=== PATIENT | female | born 1935 | race Caucasian/White ===

== ENCOUNTER → 2019-03-01 | Outpatient (CLI) | payer MEDICARE, BC ==
--- NOTE | 2019-03-01 13:49 | XR ---
EXAMINATION TYPE: XR Hip Limited RT DATE OF EXAM: 03/01/2019 CLINICAL HISTORY: Chronic right hip pain TECHNIQUE: AP and frogleg views of the right hip are obtained. COMPARISON: None. FINDINGS: There is no acute fracture/dislocation evident in the right hip. The joint space in the r ight hip appears aligned however there is cephalad joint space narrowing, subchondral cysts, and acet abular roof sclerosis. No cam deformity. Diffuse osseous demineralization is seen. The overlying sof t tissue appears unremarkable. IMPRESSION: 1. No acute fracture or dislocation in the right hip. 2. Moderate right femoral acetabular arthropathy. 3. Diffuse osseous demineralization.
== END ==
LOC: RADXRMAIN 12:41
PROVIDERS: ATTEND Family Medicine
DX: M12.851 Other specific arthropathies, not elsewhere classified, right hip (principal); M81.8 Other osteoporosis without current pathological fracture
CPT/HCPCS: 73501

== ENCOUNTER → 2019-09-13 | Outpatient (CLI) | payer MEDICARE, BC ==
[2019-09-13 09:23] LABS: Basophils % (A) 1 %; Eosinophils # (A) 0.1 k/uL (0-0.7); Eosinophils % (A) 2 %; HCT 42.5 % (34.0-46.0); HGB 13.9 gm/dL (11.4-16.0); Lymphocytes # (A) 3.2 k/uL (1.0-4.8); Lymphocytes % (A) 48 %; MCH 31.9 pg (25.0-35.0); MCHC 32.8 g/dL (31.0-37.0); MCV 97.2 fL (80.0-100.0); Mean Platelet Volume 7.8; Monocytes # (A) 0.4 k/uL (0-1.0); Monocytes % (A) 6 %; Neutrophils # (A) 2.8 k/uL (1.3-7.7); Neutrophils % (A) 42 %; Platelet Count 264 k/uL (150-450); RBC 4.37 m/uL (3.80-5.40); RDW 12.4 % (11.5-15.5); WBC 6.7 k/uL (3.8-10.6)
[2019-09-13 16:48] LABS: African American GFR (CKD) 91.6 (60.0-200.0); Albumin 4.3 g/dL (3.80-4.90); Albumin/Globulin Ratio 1.95 (1.60-3.17); Anion Gap 4.5 mmol/L (4.00-12.00); BUN/Creat Ratio 25.71 Ratio (12.00-20.00); Bilirubin, Conjugated 0.2 mg/dL (0.20-0.40); Bilirubin,Unconjugated 0.4 mg/dL; Calcium 9.1 mg/dL (8.7-10.3); Carbon Dioxide 29.5 mmol/L (21.6-31.8); Chol/HDL Ratio 4.12; Globulin 2.2 g/dL (1.6-3.3); LDL Cholesterol,Calculated 97.4 mg/dL (0.0-131.0); Potassium 4.5 mmol/L (3.5-5.5); Total Bilirubin 0.6 mg/dL (0.3-1.2); Total Protein 6.5 g/dL (6.2-8.2); VLDL Calculation 36.6 mg/dL (5.00-40.00)
== END | disposition home or self-care (01) ==
LOC: LABWHC1 08:47
PROVIDERS: ATTEND Family Medicine
DX: Z13.220 Encounter for screening for lipoid disorders (principal); E78.5 Hyperlipidemia, unspecified; I10 Essential (primary) hypertension; K29.70 Gastritis, unspecified, without bleeding; E55.9 Vitamin D deficiency, unspecified
CPT/HCPCS: 36415; 80053; 80061; 82248; 82306; 83735; 84443; 85025

== ENCOUNTER → 2019-10-21 | Outpatient (CLI) | payer MEDICARE, BC ==
--- NOTE | 2019-10-21 14:51 | XR ---
EXAMINATION TYPE: XR cervical spine 4 views comp, XR finger 3 views RT first digit, XR wrist complete 4 views RT DATE OF EXAM: 10/21/2019 COMPARISON: None HISTORY: 84-year-old female with neck pain, first MCP joint pain, wrist pain. FINDINGS: CERVICAL SPINE: Advanced hypertrophic facet and uncovertebral joint arthropathy throughout. On the left, changes resu lt in moderate bony neural foraminal narrowing mid and lower cervical spine. Moderate to severe bony neural foraminal narrowing on the right at C4-C5 and mild at additional levels. Degenerative grade 1 anterolisthesis at C4-C5 and C5-C6. No predental space widening or soft tissue swelling. RIGHT THUMB: Moderate degenerative change first MCP joint with joint space narrowing and marginal spurring. More s evere degenerative change first CMC joint with [id number] articulation, subchondral sclerosis, and marginal spurring. Moderate degenerative change triscaphe joint. No acute fracture, subluxation, or d islocation. RIGHT WRIST: Patchy osteopenia. Radiocarpal and distal radioulnar joint as well as the midcarpal compartment appea r intact. Positive ulnar variance is noted. No acute fracture, subluxation, dislocation. IMPRESSION: 1. Cervical spine: Moderate to advanced hypertrophic facet and uncovertebral joint arthropathy throug hout. Degenerative grade 1 anterolisthesis at C4-C5 and C5-C6. Variable moderate bony neuroforaminal narrowing throughout the left side and moderate to severe on the right at C4-C5. 2. Right thumb: Severe degenerative change at the basal joint of the thumb and moderate OA at the fir st MCP and triscaphe joints. 3. Right wrist: Patchy osteopenia. Positive ulnar variance incidentally noted which can lead to injur ies of the TFC. No acute osseous abnormality seen.
== END | disposition home or self-care (01) ==
LOC: RADXRMAIN 14:15
PROVIDERS: ATTEND Family Medicine
DX: M48.02 Spinal stenosis, cervical region (principal); M43.12 Spondylolisthesis, cervical region; M46.92 Unspecified inflammatory spondylopathy, cervical region; M18.11 Unilateral primary osteoarthritis of first carpometacarpal joint, right hand; M85.80 Other specified disorders of bone density and structure, unspecified site
CPT/HCPCS: 72050

== ENCOUNTER 2020-06-09 09:20 | Emergency (ER) | payer MEDICARE, BC ==
[2020-06-09 09:31] VITALS: BP 164/73; PULSE 87; RESP 18; TEMP 98
--- NOTE | 2020-06-09 10:58 | ED ---
General Adult HPI - General Chief complaint: Neuro Symptoms/Deficit Stated complaint: Possible stroke Time Seen by Provider: 06/09/20 10:43 Source: patient, family, RN notes reviewed, old records reviewed Mode of arrival: wheelchair Limitations: no limitations - History of Present Illness Initial comments: 84-year-old female patient the ED. Patient reports that she woke up today with sinus pressure. Patient reports that for years she has had some waxing and waning paresthesias down her arms. This is unchanged. Patient reports that she transiently had a little bit of pressure behind her eye. This concerned her for a brief period of time she went on the hospital for evaluation. At this time patient is reporting maxillary sinus pressure no paresthesias no weakness no headache. Patient never any facial droop or any unilateral weakness. Denies any falls or trauma. Systemic: Pt denies fatigue, fever/chills, rash. Pt denies weakness, night sw eats, weight loss. Neuro: Pt denies headache, visual disturbances, syncope or pre-syncope. HEENT: Pt denies ocular discharge or irritation, otalgia, rhinorrhea, pharyngitis or notable lymphadenopathy. Cardiopulmonary: Pt denies chest pain, SOB, heart palpitations, dyspnea on exertion. Abdominal/GI: Pt denies abdominal pain, n/v/d. : Pt denies dysuria, burning w/ urination, frequency/urgency. Denies new onset urinary or bowel incontinence. MSK: Pt denies myalgia, loss of strength or function in extremities. Neuro: Pt denies new onset weakness, paresthesias. - Related Data Home Medications Medication Instructions Recorded Confirmed Ergocalciferol [Vitamin D2 50,000 unit PO Q7D 05/08/15 03/05/16 (DRISDOL)] amLODIPine BESYLATE [Norvasc] 2.5 mg PO DAILY 05/08/15 03/05/16 diazePAM [Valium] 5 mg PO HS PRN 05/08/15 03/05/16 Previous Rx's Medication Instructions Recorded Aspirin 325 mg PO DAILY #30 tab 05/12/15 Atorvastatin [Lipitor] 80 mg PO HS #60 tab 05/12/15 Clopidogrel [Plavix] 75 mg PO DAILY #90 tab 05/12/15 Metoprolol Tartrate [Lopressor] 25 mg PO DAILY #60 tab 05/12/15 Nitroglycerin Sl Tabs [Nitrostat] 0.4 mg SUBLINGUAL Q5M PRN #25 tab 05/12/15 Valsartan [Diovan] 160 mg PO DAILY #60 tab 05/12/15 Erythromycin Ophth Oint [Romycin 1 applic LEFT EYE QID 10 Days gm 03/05/16 Ophth Oint] Allergies Allergy/AdvReac Type Severity Reaction Status Date / Time Cephalosporins Allergy Unknown Verified 06/09/20 09:31 levofloxacin [From Levaquin] Allergy Dyspnea Verified 06/09/20 09:31 ofloxacin [From Floxin] Allergy Unknown Verified 06/09/20 09:31 oxaprozin [From Daypro] Allergy Unknown Verified 06/09/20 09:31 codeine AdvReac dizzy Verified 06/09/20 09:31 Review of Systems ROS Statement: Those systems with pertinent positive or pertinent negative responses have been documented in the HPI. ROS Other: All systems not noted in ROS Statement are negative. Past Medical History Past Medical History: Hypertension, Osteoarthritis (OA) Additional Past Medical History / Comment(s): 05/11/15 Pt admitted to floor s/p stent to LAD- R radial approach. 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 Other SX: R leg veinstripping, cyst removed from ovary, bladder suspension, breast implants Past Anesthesia/Blood Transfusion Reactions: No Reported Reaction Additional Past Anesthesia/Blood Transfusion Reaction / Comment(s): Pt has never recieved blood. Date of Last Stent Placement:: 05/11/15 Past Psychological History: Anxiety Past Alcohol Use History: Rare Past Drug Use History: None Reported - Past Family History Mother Family Medical History: Cancer Additional Family Medical History / Comment(s): Mother at age 847yrs of throat cancer mets to bowel Son(s) Family Medical History: Cancer Father Family Medical History: AFIB, CVA/TIA Additional Family Medical History / Comment(s): Father had heart problems and of a CVA at age 88 yrs. General Exam - General Exam Comments Initial Comments: Constitutional: NAD, AOX3, Pt has pleasant affect. HEENT: NC/AT, trachea midline, neck supple, no lymphadenopathy. External ears appear normal, without discharge. Mucous membranes moist. Eyes PERRLA, EOM intact. There is no scleral icterus. No pallor noted. Cardiopulmonary: RRR, no murmurs, rubs or gallops, no JVD noted. Lungs CTAB in anterior and posterior louis. No peripheral edema. Abdominal exam: Abdomen soft and non-distended. Abdomen non-tender to palpation in all 4 quadrants. Neuro: CN II-XII intact. No nuchal rigidity. No raccon eyes, no soliz sign. NIH 0. MSK: Sensation intact in upper and lower extremities. Full active ROM in upper and lower extremities, 5/5 stregnth. Ambulatory without difficulty. Limitations: no limitations Course Vital Signs 06/09/20 09:26 Temperature 98.0 F Pulse Rate 87 Respiratory 18 Rate Blood Pressure 164/73 O2 Sat by Pulse 99 Oximetry Medical Decision Making - Medical Decision Making 84-year-old female patient to ED. Patient does report that she has had some sinus pressure which began today. Upon evaluation I recommended advance imaging CAT scan. Patient is adamantly declining this. She reports that she is sure that it is her sinuses. That she no longer wants to be in the hospital she would like to leave immediately. She is declining any medications emergency department and she will reports she will take [id number] medications. I did give her recommendations including flonase. She'll follow up with her primary care doctor and will return to ER if any worsening symptoms. Case discussed with Dr. Naqvi. - EKG Data -: EKG Interpreted by Me (and Dr. Naqvi ) EKG Comments: ventricular rate 71, ID interval 190, QRS 134, QT/QTc 434/471. Normal sinus rhythm, rhythm. Left axis deviation. Left bundle branch block. No concern for acute ischemia at this time. Disposition Clinical Impression: Sinus pressure Disposition: HOME SELF-CARE Condition: Stable Instructions (If sedation given, give patient instructions): Sinusitis (ED) Additional Instructions: Follow up with PCP tomorrow. Return to ED with any worsening symptoms. Is patient prescribed a controlled substance at d/c from ED?: No Referrals: Fidel Vreonica MD [Primary Care Provider] - 1-2 days
== END 2020-06-09 11:13 | disposition home or self-care (01) ==
LOC: EC 09:20
DX: J32.0 Chronic maxillary sinusitis (principal); R20.2 Paresthesia of skin; I10 Essential (primary) hypertension; F41.9 Anxiety disorder, unspecified; Z79.899 Other long term (current) drug therapy; Z88.1 Allergy status to other antibiotic agents; Z88.5 Allergy status to narcotic agent; Z95.5 Presence of coronary angioplasty implant and graft
CPT/HCPCS: 93005; 99284

== ENCOUNTER 2021-09-02 13:44 | Emergency (ER) | payer MEDICARE, BC ==
[2021-09-02 13:58] VITALS: BP 135/64; PULSE 84; RESP 20; TEMP 98.7
[2021-09-02] MEDS ORDERED: KETOROLAC 15 MG/ML 1 ML VIAL IM STA (14:11)
--- NOTE | 2021-09-02 14:13 | ED ---
General Adult HPI - General Chief complaint: Fall Stated complaint: Fall Time Seen by Provider: 09/02/21 13:55 Source: patient, RN notes reviewed, old records reviewed Mode of arrival: ambulatory Limitations: no limitations - History of Present Illness Initial comments: This is an 86-year-old female who states she fell today because she tripped on her shoes are sticky. Patient states she hit some wood on the left side of her chest and that is the area that hurts. Patient states she did bump her right knee but it does not hurt she has full range of motion. Patient does not have a headache she did not hit her head. Patient denies neck pain patient has full range of motion of her neck. Patient denies any other injuries. Patient does not have any difficulty breathing shortness of breath. - Related Data Home Medications Medication Instructions Recorded Confirmed Ergocalciferol [Vitamin D2 50,000 unit PO Q7D 05/08/15 03/05/16 (DRISDOL)] amLODIPine BESYLATE [Norvasc] 2.5 mg PO DAILY 05/08/15 03/05/16 diazePAM [Valium] 5 mg PO HS PRN 05/08/15 03/05/16 Previous Rx's Medication Instructions Recorded Aspirin 325 mg PO DAILY #30 tab 05/12/15 Atorvastatin [Lipitor] 80 mg PO HS #60 tab 05/12/15 Clopidogrel [Plavix] 75 mg PO DAILY #90 tab 05/12/15 Metoprolol Tartrate [Lopressor] 25 mg PO DAILY #60 tab 05/12/15 Nitroglycerin Sl Tabs [Nitrostat] 0.4 mg SUBLINGUAL Q5M PRN #25 tab 05/12/15 Valsartan [Diovan] 160 mg PO DAILY #60 tab 05/12/15 Erythromycin Ophth Oint [Romycin 1 applic LEFT EYE QID 10 Days gm 03/05/16 Ophth Oint] Ibuprofen [Motrin] 400 mg PO Q8HR PRN #12 tab 09/02/21 Allergies Allergy/AdvReac Type Severity Reaction Status Date / Time azithromycin Allergy Unknown Verified 09/02/21 13:55 Cephalosporins Allergy Unknown Verified 09/02/21 13:54 levofloxacin [From Levaquin] Allergy Dyspnea Verified 09/02/21 13:54 ofloxacin [From Floxin] Allergy Unknown Verified 09/02/21 13:54 oxaprozin [From Daypro] Allergy Unknown Verified 09/02/21 13:54 codeine AdvReac dizzy Verified 09/02/21 13:54 Review of Systems ROS Statement: Those systems with pertinent positive or pertinent negative responses have been documented in the HPI. ROS Other: All systems not noted in ROS Statement are negative. Past Medical History Past Medical History: Hypertension, Osteoarthritis (OA) Additional Past Medical History / Comment(s): 05/11/15 Pt admitted to floor s/p stent to LAD- R radial approach. 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 Other SX: R leg veinstripping, cyst removed from ovary, bladder suspension, breast implants Past Anesthesia/Blood Transfusion Reactions: No Reported Reaction Additional Past Anesthesia/Blood Transfusion Reaction / Comment(s): Pt has never recieved blood. Date of Last Stent Placement:: 05/11/15 Past Psychological History: Anxiety Smoking Status: Former smoker Past Alcohol Use History: Rare Past Drug Use History: None Reported - Past Family History Mother Family Medical History: Cancer Additional Family Medical History / Comment(s): Mother at age 847yrs of throat cancer mets to bowel Son(s) Family Medical History: Cancer Father Family Medical History: AFIB, CVA/TIA Additional Family Medical History / Comment(s): Father had heart problems and of a CVA at age 88 yrs. General Exam - General Exam Comments Initial Comments: GENERAL: Patient is well-developed and well-nourished. Patient is nontoxic and well- hydrated and is in mild distress. ENT: Neck is soft and supple. No significant lymphadenopathy is noted. Oropharynx i s clear. Moist mucous membranes. Neck has full range of motion without eliciting any pain. EYES: The sclera were anicteric and conjunctiva were pink and moist. Extraocular movements were intact and pupils were equal round and reactive to light. Eyelids were unremarkable. PULMONARY: Unlabored respirations. Good breath sounds bilaterally. No audible rales rhonchi or wheezing was noted. CARDIOVASCULAR: There is a regular rate and rhythm without any murmurs gallops or rubs. Patient has tenderness to the left lateral chest wall. ABDOMEN: Soft and nontender with normal bowel sounds. No tenderness in the left upper quadrant of the abdomen SKIN: Skin is clear with no lesions or rashes and otherwise unremarkable. NEUROLOGIC: Patient is alert and oriented x3. Cranial nerves II through XII are grossly intact. Motor and sensory are also intact. Normal speech, volume and content. Symmetrical smile. MUSCULOSKELETAL: Normal extremities with adequate strength and full range of motion. LYMPHATICS: No significant lymphadenopathy is noted PSYCHIATRIC: Normal psychiatric evaluation. Limitations: no limitations Course Vital Signs 09/02/21 13:55 Temperature 98.7 F Pulse Rate 84 Respiratory 20 Rate Blood Pressure 135/64 O2 Sat by Pulse 96 Oximetry Medical Decision Making - Medical Decision Making Chest x-ray and rib x-ray show no acute abnormality. Patient patient received Toradol emergency department. Disposition Clinical Impression: Chest wall contusion Disposition: HOME SELF-CARE Condition: Good Instructions (If sedation given, give patient instructions): Rib Fracture in Children (ED), Contusion in Adults (ED) Prescriptions: Ibuprofen [Motrin] 400 mg PO Q8HR PRN #12 tab PRN Reason: Pain Is patient prescribed a controlled substance at d/c from ED?: No Referrals: Fidel Veronica MD [Primary Care Provider] - 1-2 days Time of Disposition: 15:10
--- NOTE | 2021-09-02 14:38 | XR ---
EXAMINATION TYPE: XR ribs LT w pa chest xray DATE OF EXAM: 09/02/2021 COMPARISON: Chest and left-sided rib x-rays September 11, 2014 HISTORY: Following injury with chest and left-sided rib pain. TECHNIQUE: A single frontal view of the chest. A frontal and oblique image of the left ribs. FINDINGS: Mild cardiomegaly with atherosclerotic and ectatic thoracic aorta redemonstrated. Chronic p arenchymal changes without new suspicious focal airspace opacity, pleural effusion, or pneumothorax i s seen. Osseous structures remain demineralized. Dedicated images of the left-sided ribs show no acute displaced fractures. Overlying soft tissue is u nremarkable. IMPRESSION: 1. Chronic changes and mild cardiomegaly without acute pulmonary process. 2. No acute displaced left-sided rib fractures.
== END 2021-09-02 15:31 | disposition home or self-care (01) ==
LOC: EC 13:44
DX: S20.219A Contusion of unspecified front wall of thorax, initial encounter (principal); I10 Essential (primary) hypertension; Z87.891 Personal history of nicotine dependence; Z88.1 Allergy status to other antibiotic agents; Z88.6 Allergy status to analgesic agent; Z88.5 Allergy status to narcotic agent; W01.0XXA Fall on same level from slipping, tripping and stumbling without subsequent striking against object, initial encounter
CPT/HCPCS: 99284

== ENCOUNTER → 2022-11-09 | Outpatient (CLI) | payer MEDICARE, BC ==
--- NOTE | 2022-11-09 15:40 | XR ---
EXAMINATION TYPE: XR cervical spine comp DATE OF EXAM: 11/09/2022 3:20 PM INDICATION: Patient age:Female; 87 years old; Reason for study: R06.02 SHORTNESS OF BREATH M48.02 SPINAL STENOSIS,; [facility]. COMPARISON: Spine radiograph 10/21/2019 TECHNIQUE: The cervical spine was imaged in 4 projections. Frontal, lateral, odontoid and bilateral o blique. FINDINGS: No acute fracture. Advanced hypertrophic facet and uncovertebral joint arthropathy throughout. Modera te bilateral neural foraminal bony narrowing from C3 through C7. Degenerative grade 1 anterolisthesis of C4 on C5 and C5 on C6 redemonstrated. Multilevel disc space narrowing with endplate sclerosis. Pr evertebral space is within normal limits. IMPRESSION: 1. No fracture or dislocation. 2. Increased moderate degenerative disc disease changes of the cervical spine.
--- NOTE | 2022-11-09 15:43 | XR ---
EXAMINATION TYPE: XR ribs bilat w pa chest xray DATE OF EXAM: 11/09/2022 3:19 PM INDICATION: Patient age:Female; 87 years old; Reason for study: R06.02 SHORTNESS OF BREATH M48.02 SPINAL STENOSIS,; [facility]. COMPARISON: CT chest 09/15/2022, chest radiograph 09/15/2022. TECHNIQUE: Frontal and oblique views of the lateral ribs. PA chest radiograph was obtained. FINDINGS: The ribs have a normal appearance. No evidence of fracture. Hyperinflation. Overall, the l ungs are clear. Chronic senescent parenchymal change. Atherosclerotic calcification of the aorta. Mil dly enlarged heart. The remaining osseous structures are intact. IMPRESSION: 1. No acute osseous pathology. 2. COPD changes.
== END | disposition home or self-care (01) ==
LOC: RADXRMAIN 14:45
PROVIDERS: ATTEND Internal Medicine
DX: J44.9 Chronic obstructive pulmonary disease, unspecified (principal); M48.02 Spinal stenosis, cervical region; M50.30 Other cervical disc degeneration, unspecified cervical region
CPT/HCPCS: 71111; 72050

== ENCOUNTER → 2022-11-11 | Outpatient (CLI) | payer MEDICARE, BC ==
--- NOTE | 2022-11-11 12:45 | BD ---
EXAMINATION TYPE: Axial Bone Density DATE OF EXAM: 11/11/2022 CLINICAL HISTORY: 87 years old Female. ICD-10 CODE: M81.0 OSTEOPOROSIS Height: 58in Weight: 154lb FRAX RISK QUESTIONS: Secondary Osteoporosis: RISK FACTORS HISTORY OF: Family History of Osteoporosis: yes Active: yes Postmenopausal woman: yes Take estrogen and/or progesterone medications: yes, in the , none current How long: maybe 2 years Lost more than 2 inches in height since high school: yes MEDICATIONS: Additional Medications: cholesterol med, vitamin d, bp med Additional History: EXAM MEASUREMENTS: Bone mineral densitometry was performed using the simfy System. Bone mineral density as measured about the Lumbar spine is: ----- L1-L4(G/cm2): 1.133 T Score Values are as follows: ----- L1: -0.5 ----- L2: -0.6 ----- L3: -0.2 ----- L4: -0.4 ----- L1-L4: -0.4 Z Score Values are as follows: ----- L1: 1.3 ----- L2: 1.2 ----- L3: 1.6 ----- L4: 1.4 ----- L1-L4: 1.[address] [facility] [place] Bone mineral density about the R hip (g/cm2): 0.891 Bone mineral density about the L hip (g/cm2): 0.858 T Score values are as follows: -----R Neck: -1.5 -----L Neck: -1.5 -----R Total: -0.9 -----L Total: -1.2 Z Score values are as follows: -----R Neck: 0.9 -----L Neck: 0.9 -----R Total: 1.4 -----L Total: 1.1 FRAX%s: The graph provided illustrates a 21.2% chance for a major osteoporotic fx and a 13.2% chance for the hips probability for fx in 10 years time. IMPRESSION: Osteopenia (T Score between -2.5 and -1). There is slightly increased risk of fracture and the patient may be considered for treatment. Re-Screen 2-5 years. NOTE: T-SCORE=SD OF THE YOUNG ADULT MEAN.
== END | disposition home or self-care (01) ==
LOC: RADBDWWP 08:57
PROVIDERS: ATTEND Internal Medicine Geriatric Medicine
DX: M85.89 Other specified disorders of bone density and structure, multiple sites (principal); M81.0 Age-related osteoporosis without current pathological fracture; Z78.0 Asymptomatic menopausal state
CPT/HCPCS: 77080